=== PATIENT | female | born 1975 | race Caucasian/White ===

== ENCOUNTER → 2016-08-01 | Outpatient (CLI) | payer BC ==
[~2016-08-01] MED LIST: LOPRESSOR 225 MG/TAB PO; SINGULAIR 110 MG/TAB PO; ZYRTEC 10MG10 MG PO
== END ==
LOC: MC.RAD 06:58
DX: Z12.31 Encounter for screening mammogram for malignant neoplasm of breast (principal)

== ENCOUNTER → 2017-02-01 | Outpatient (CLI) | payer BC | LOC: MC.RAD 08:49 | DX: N60.12 Diffuse cystic mastopathy of left breast (principal); N60.11 Diffuse cystic mastopathy of right breast; N63.10 Unspecified lump in the right breast, unspecified quadrant; N63.20 Unspecified lump in the left breast, unspecified quadrant ==

== ENCOUNTER → 2017-11-26 | Outpatient (CLI) | payer BC | LOC: MC.RAD 11-21 14:00 | DX: Z12.31 Encounter for screening mammogram for malignant neoplasm of breast (principal); N60.01 Solitary cyst of right breast ==

== ENCOUNTER → 2018-12-02 | Outpatient (CLI) | payer BC | LOC: MC.RAD 11:45 | DX: Z12.31 Encounter for screening mammogram for malignant neoplasm of breast (principal) ==

== ENCOUNTER → 2018-12-06 | Outpatient (CLI) | payer BC | LOC: MC.RAD 12:55 | DX: N60.01 Solitary cyst of right breast (principal) ==

== ENCOUNTER → 2019-12-05 | Outpatient (CLI) | payer BC | LOC: MC.RAD 13:21 | DX: Z12.31 Encounter for screening mammogram for malignant neoplasm of breast (principal); N63.20 Unspecified lump in the left breast, unspecified quadrant ==

== ENCOUNTER → 2019-12-11 | Outpatient (CLI) | payer BC | LOC: MC.RAD 12:52 | DX: N60.02 Solitary cyst of left breast (principal); N63.20 Unspecified lump in the left breast, unspecified quadrant ==

== ENCOUNTER → 2020-10-07 | Outpatient (CLI) | payer BC | LOC: MC.RAD 07:17 | DX: N63.10 Unspecified lump in the right breast, unspecified quadrant (principal) ==

== ENCOUNTER → 2020-10-12 | Outpatient (CLI) | payer BC | LOC: MC.RAD 12:49 | DX: N60.01 Solitary cyst of right breast (principal) ==

== ENCOUNTER → 2020-12-22 | Outpatient (CLI) | payer BC | LOC: MC.RAD 14:28 | DX: Z12.31 Encounter for screening mammogram for malignant neoplasm of breast (principal) ==

== ENCOUNTER → 2022-01-09 | Outpatient (CLI) | payer BC | LOC: MC.RAD 09:10 | DX: Z12.31 Encounter for screening mammogram for malignant neoplasm of breast (principal) ==